=== PATIENT | female | born 1975 | race Caucasian/White ===

== ENCOUNTER → 2020-03-12 11:31 | Outpatient (CLI) | payer MEDICAID, SELFPAY ==
[2019-12-13 13:44] VITALS: BMI 28.7
--- NOTE | 2020-03-12 11:32 | NM_ITS ---
STUDY: IODINE-131 TREATMENT FOR THYROID CANCER. REASON FOR EXAM: Female, 44 years old. Thyroid cancer, 14 day WB scan TECHNIQUE: The patient ingested 32.3 mCi of IODINE-131. COMPARISON: None. FINDINGS: Ingestion of 32.3 mCi of IODINE-131 for treatment of thyroid cancer. NM/Thyroid Whole Body I-131 Scan IMPRESSION: 32.3 mCi of IODINE-131 for treatment of thyroid cancer. Electronically Signed: Robin Gordon, at 12:18 EST , Service support ,
--- NOTE | 2020-03-25 10:22 | NM_ITS ---
CLINICAL: 44-year-old female with reported history of primary thyroid carcinoma is presenting for post ablation I-131 whole body scintigraphy. I-131 WHOLE BODY SCINTIGRAPHY COMPARISON: None available FINDINGS: Following the oral administration of 32.3 mCi of I-131, whole body images obtained at 14 days post radiopharmaceutical administration reveal: 1. Prominent radiopharmaceutical concentration is identified in the anterior neck-thyroid bed. 2. Normal physiologic distribution of the radiopharmaceutical is minimally identified in the hepatic parenchyma. NM/Thyroid Whole Body I-131 Scan IMPRESSION: 1. The increase in radiotracer distribution defined in the anterior neck-thyroid bed is commensurate with the thyroid remnant post thyroidectomy. 2. There is no definitive scintigraphic evidence of IODINE avid distant metastatic disease. Electronically Signed: Abraham Castro DO at 13:17 EST Tel , Service support ,
== END ==
PROVIDERS: PCP Family Medicine; Referring Provider Internal Medicine Endocrinology, Diabetes & Metabolism; Visit Provider Internal Medicine Endocrinology, Diabetes & Metabolism
DX: C73 Malignant neoplasm of thyroid gland (principal)
CPT/HCPCS: 78018; A9517

== ENCOUNTER → 2020-08-31 14:11 | Outpatient (CLI) | payer MEDICAID, SELFPAY ==
[2020-08-31 13:44] VITALS: BMI 28.7
[2020-08-31 16:11] LABS: T4 Free Direct 1.04 ng/dL (0.76-1.46); Thyroid Stim Hormone (TSH) 0.21 uIU/mL (0.358-3.74)
== END ==
PROVIDERS: Visit Provider Internal Medicine Endocrinology, Diabetes & Metabolism
DX: C73 Malignant neoplasm of thyroid gland (principal); E89.0 Postprocedural hypothyroidism
CPT/HCPCS: 36415; 84439; 84443

== ENCOUNTER → 2021-08-30 | Outpatient (CLI) | payer MEDICAID, SELFPAY ==
[2021-08-30 16:11] LABS: T4 Free Direct 0.99 ng/dL (0.76-1.46); Thyroid Stim Hormone (TSH) 0.45 uIU/mL (0.358-3.74)
[2021-09-02 17:17] LABS: Anti-Thyroglobulin AB < 1.0 IU/mL (0.0-0.9); Thyroglobulin, Serum Qt. < 0.1 ng/mL (1.5-38.5)
== END | disposition home or self-care (01) ==
LOC: BIMLAB 12:01
PROVIDERS: Referring Provider Internal Medicine Endocrinology, Diabetes & Metabolism; Visit Provider Internal Medicine Endocrinology, Diabetes & Metabolism
DX: C73 Malignant neoplasm of thyroid gland (principal); E89.0 Postprocedural hypothyroidism
CPT/HCPCS: 36415; 84432; 84439; 84443; 86800

== ENCOUNTER → 2022-08-22 | Outpatient (CLI) | payer MEDICAID, SELFPAY ==
[2022-08-22 14:16] LABS: T4 Free Direct 1.06 ng/dL (0.76-1.46); Thyroid Stim Hormone (TSH) 0.56 uIU/mL (0.358-3.74)
[2022-08-24 17:07] LABS: Anti-Thyroglobulin AB < 1.0 IU/mL (0.0-0.9); Thyroglobulin, Serum Qt. < 0.1 ng/mL (1.5-38.5)
== END | disposition home or self-care (01) ==
LOC: LAB 12:26
PROVIDERS: PCP Family Medicine; Referring Provider Internal Medicine Endocrinology, Diabetes & Metabolism; Visit Provider Internal Medicine Endocrinology, Diabetes & Metabolism
DX: C73 Malignant neoplasm of thyroid gland (principal); E89.0 Postprocedural hypothyroidism
CPT/HCPCS: 36415; 84432; 84439; 84443; 86800

== ENCOUNTER → 2023-08-24 | Outpatient (CLI) | payer MEDICAID, SELFPAY ==
[2023-08-24 13:38] LABS: T4 Free Direct 0.99 ng/dL (0.76-1.46); Thyroid Stim Hormone (TSH) 0.92 uIU/mL (0.358-3.74)
[2023-08-29 17:07] LABS: Anti-Thyroglobulin AB < 1.0 IU/mL (0.0-0.9); Thyroglobulin, Serum Qt. < 0.1 ng/mL (1.5-38.5)
== END | disposition home or self-care (01) ==
LOC: LAB 12:44
PROVIDERS: PCP Family Medicine; Referring Provider Internal Medicine Endocrinology, Diabetes & Metabolism; Visit Provider Internal Medicine Endocrinology, Diabetes & Metabolism
DX: E89.0 Postprocedural hypothyroidism (principal); C73 Malignant neoplasm of thyroid gland
CPT/HCPCS: 36415; 84432; 84439; 84443; 86800

== ENCOUNTER → 2024-08-22 | Outpatient (CLI) | payer MEDICAID, SELFPAY ==
[2024-08-22 14:05] LABS: Follicle Stimulating Hormone 5.8 mIU/mL
[2024-08-26 16:08] LABS: Anti-Thyroglobulin AB < 1.0 IU/mL (0.0-0.9); Thyroglobulin, Serum Qt. < 0.1 ng/mL (1.5-38.5)
== END | disposition home or self-care (01) ==
LOC: LAB 12:49
PROVIDERS: PCP Family Medicine; Referring Provider Internal Medicine Endocrinology, Diabetes & Metabolism; Visit Provider Internal Medicine Endocrinology, Diabetes & Metabolism
DX: C73 Malignant neoplasm of thyroid gland (principal); E89.0 Postprocedural hypothyroidism; N91.5 Oligomenorrhea, unspecified
CPT/HCPCS: 36415; 83001; 84432; 84439; 84443; 86800